=== PATIENT | male | born 1965 | race American Indian/Alaskan Native ===

== ENCOUNTER 2017-06-08 09:34 | Outpatient (CLI) | payer OTHER ==
[2017-06-08 10:23] LABS: Blood Urea Nitrogen 13 mg/dL (9-20)
--- NOTE | 2017-06-08 14:19 | Cat Scan Report ---
CT ANGIOGRAM ABDOMEN/FEMORAL ABDOMINAL AORTA: INDICATION: Abdominal aortic aneurysm without rupture. COMPARISON: None similar. FINDINGS: CT angiogram of the abdomen, pelvis and both lower extremities performed. Axial, sagittal, coronal and computer-generated MIP reconstructions obtained. LUNG BASES: Right hemidiaphragm mildly elevated. Top normal heart size. Mild nonspecific distal esophageal prominence/thickening. Descending aortic caliber approximately 4.3 x 4 cm, axial series 2, image 1 and demonstrates incompletely imaged dissection with opacification of both lumens. No effusions. ABDOMEN: CTA images demonstrate dissection flap extending throughout the abdominal aorta as also into the proximal 2-3 cm extent of the celiac axis from its aortic origin, axial image 89, series 2. Dissection flap also extends into the proximal SMA for approximately 7-8 cm from its aortic origin, axial images 100-160. Both renal arteries patent and appear to arise from the same right posterolateral lumen. Distal abdominal aorta measures up to 3.2 x 2.6 cm, axial image 178, series 2 with dissection flap and few atherosclerotic changes/peripheral nonocclusive thrombus. Similar changes also noted along the right common iliac artery with maximum caliber approximately 2.3 cm, axial image 225, series 2. Dissection flaps noted within both common and external iliac arteries, extending slightly more inferior on the left than right with both lumens remaining patent. Liver, lobulated spleen, gallbladder, pancreas, adrenals and IVC appear within normal limits. Few surgical clips noted about the pancreatic head. No ascites or size significant adenopathy. Nonopacified GI tract evaluation limited, though grossly nonobstructive. Normal appendix. Mild colon stool. Non-hydronephrotic kidneys with left greater than right renal cortical hypodensities/cysts, both in size and number and measuring up to approximately 4 cm posteromedially, axial image 128, series 2. The other 2.5 cm more superior left renal cyst slightly complex with approximately 6 mm peripheral density inferiorly, axial image 111. A subxiphoid midline fat containing hernia with a transverse neck of 2.6 cm, axial image 54. PELVIS: In addition to CTA findings described above, internal iliac and common femoral arteries at the groins appear unremarkable. A minimally prominent prostate may be correlated for clinically and with PSA. Few small pelvic phleboliths. Grossly unremarkable non-opacified urinary bladder and the seminal vesicles. Mild rectosigmoid stool. No free fluid or significant adenopathy. LOWER EXTREMITIES: CTA images demonstrate patent common and superficial femoral arteries, popliteal arteries and trifurcation bilaterally with predominantly anterior and posterior tibial vessel runoff more inferiorly to the ankle with peroneal arteries appearing to taper out. No focal aggressive osseous lesions. Possible sternotomy wire. CONCLUSION: 1. Extensive abdominal aortic and imaged descending thoracic aortic dissection noted, its superior extent unknown at this time. Both lumens however patent throughout. Dissection flap also noted extending into the celiac axis, SMA as also bilateral iliac arteries, as detailed above. Aneurysmal infrarenal abdominal aorta and right common iliac artery. 2. Various other findings as possible sternotomy, subxiphoid ventral hernia containing fat, bilateral renal hypodense cysts and lobulated spleen, amongst others, as described above. I phoned the above results to Dr. Kang, 12 PM, 06/08/2017 who provided additional history of prior aortic repair. Patient to return to radiology department for chest CTA assessment of thoracic aortic dissection as well. Thank you for the opportunity to participate in this patient's care.
== END 2017-06-08 09:35 | disposition home or self-care (01) ==
LOC: CT 09:34
PROVIDERS: ATTEND Internal Medicine
DX: I71.4 Abdominal aortic aneurysm, without rupture (principal); N28.1 Cyst of kidney, acquired; K43.9 Ventral hernia without obstruction or gangrene; J98.6 Disorders of diaphragm; I87.8 Other specified disorders of veins; I72.8 Aneurysm of other specified arteries
CPT/HCPCS: 36415; 75635; 82565; 84520; Q9967

== ENCOUNTER 2017-06-11 07:21 | Outpatient (CLI) | payer OTHER ==
--- NOTE | 2017-06-11 09:00 | Cat Scan Report ---
CTA CHEST: HISTORY: Abdominal aortic aneurysm without rupture. COMPARISON: Correlation is made with the CTA abdomen runoff performed 06/08/17. No previous CT chest at this facility. TECHNIQUE: Helical CT in 1.25mm intervals following IV contrast. Sagittal and coronal reformatted images. Rotational MIP images. FINDINGS: Contrast bolus is satisfactory. An aortic dissection originates just distal to the takeoff of the left subclavian artery in the posterior aortic arch and descends into the abdominal aorta. The false lumen of the dissection extends into the celiac trunk and proximal superior mesenteric artery. Most of these two arteries are fed by the false lumen. The left renal artery also arises from the false lumen. The ascending aorta and remainder of aortic arch are normal caliber and without abnormality. There is suggestion of previous surgical changes involving the aortic arch, correlate with history. No evidence for contrast extravasation. The central pulmonary arteries are clear of embolus or stenosis. Thyroid gland: Normal. Tracheobronchial tree: Normal. Esophagus: Normal. Heart: Normal. Pericardium: Normal. Mediastinum: There is a solitary borderline lymph node in the aortopulmonary window measuring 1.8 x 1.3 cm in axial plane. Lung Noel: Well-aerated. No parenchymal lung disease is appreciated. No evidence for infiltrate, nodule or mass. Pleural Spaces: Normal. Musculoskeletal: Within normal limits. Sternotomy wires are noted indicating previous thoracic surgery. 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
== END 2017-06-11 07:22 | disposition home or self-care (01) ==
LOC: CT 07:21
PROVIDERS: ATTEND Internal Medicine
DX: I71.4 Abdominal aortic aneurysm, without rupture (principal); Z98.890 Other specified postprocedural states
CPT/HCPCS: 71275; Q9967